=== PATIENT | female | born 1995 | race Caucasian/White ===

== ENCOUNTER 2019-07-22 23:03 | Emergency (ER) | payer BC ==
[~2019-07-22] VITALS: Ht 175.3 cm; Wt 70.9 kg
[2019-07-22] MEDS ORDERED: ONDANSETRON 2MG/ML, 2ML ONE (23:06)
[2019-07-22 23:08] VITALS: BP 119/64
[2019-07-22] MEDS: PLEASE ENTER ALLERGIES MC SCH ×2 (23:16→23:20)
[2019-07-22] MEDS ORDERED: ONDANSETRON 2MG/ML, 2ML IVPush ONE (23:30)
== END 2019-07-23 01:28 | disposition home or self-care (01) ==
LOC: ED 07-23 01:25
DX: F10.120 Alcohol abuse with intoxication, uncomplicated (principal)
CPT/HCPCS: 96374; 99283; J2405